=== PATIENT | female | born 1975 | race Caucasian/White ===

== ENCOUNTER 2021-08-20 16:52 | Emergency (ER) | payer MEDICAID ==
[~2021-08-20] VITALS: Ht 165.1 cm; Wt 77.0 kg
[~2021-08-20 16:52] MED LIST: PREN-88 PO
[2021-08-20 17:15] VITALS: BP 145/79
[2021-08-20] MEDS ORDERED: IBUPROFEN 600MG TABLET PO NR (17:15)
[2021-08-20] MEDS ORDERED: CEPH500C2 PO (17:22)
[2021-08-20] MEDS ORDERED: IBUP-2029 PO (17:22)
[2021-08-20] MEDS ORDERED: SULF1TAB48 PO (17:22)
== END 2021-08-20 18:42 | disposition home or self-care (01) ==
LOC: ER 16:52
DX: L03.032 Cellulitis of left toe (principal)
CPT/HCPCS: 99283